=== PATIENT | female | born 1990 | race Two or more races ===

== ENCOUNTER 2017-09-08 22:33 | Emergency (ER) | payer OTHER ==
[2016-02-16 22:15] VITALS: Wt 96.2 kg
[~2017-09-08 22:33] MED LIST: AMOX-362 PO; AUG875 PO; CEPH500C24 PO; FERR159T PO; FERR27TA3 PO; FERR324T16 PO; HYDR-4240 PO; HYDR-4309 PO; HYDR2TAB74 PO; IBU800 PO; IBUP-56 PO; IBUP800T37 PO; METH-278 PO; NIT100 PO; NITR-105 PO; OXYC-373 PO; PER PO; PHENA200 PO; PNV1TABL70 PO; PRED-1 PO; PRED20TA6 PO; PREN-127 PO; SULF-198 PO
[2017-09-08 22:40] VITALS: BP 123/70
--- NOTE | 2017-09-08 22:40 | ER Report ---
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 Patient has no obvious knowledge as to the source patient. She thinks it was a diabetic syringe. Patient sustained a tiny puncture wound to her small finger. Allergies: Coded Allergies: No Known Drug Allergies (Verified , 05/27/15) Home Meds Reported Medications Ferrous Sulfate, Dried (IRON) 159 Mg Tablet.er, PO 02/16/16 Vits W-Ca,Fe,Fa(<1MG) ( VITAMINS) 1 Each Tablet, 1 EACH PO DAILY, TAB 02/16/16 Reviewed Nurses Notes: Yes Old Medical Records Reviewed: Yes Hx Smoking: Yes Smoking Status: Former Smoker Exposure to Second Hand Smoke?: Yes Hx Substance Use Disorder: No Hx Alcohol Use: No Constitutional Vital Sign - Last 24 Hours 09/08/17 22:40 Temp 99.0 Pulse 66 Resp 16 B/P (MAP) 123/70 Pulse Ox 94 O2 Delivery Room Air Physical Exam General appearance: Alert no distress. Respiratory: Chest is non tender, lungs are clear to auscultation. Cardiac: Regular rate and rhythm Extremities. There is a tiny puncture wound noted on the left hand. DIFFERENTIAL DIAGNOSIS: After history and physical exam differential diagnosis was considered for needlestick exposure, parenteral body fluid exposure Medical Decision Making Data Points Laboratory Hematology Test 09/08/17 23:03 HIV (1&2) Antibody Negative (NEGATIVE) Chemistry Test 09/08/17 23:03 HIV (1&2) Antibody Negative (NEGATIVE) ED Course/Re-evaluation ED Course Patient was admitted to an examination room. H&P was done. The differential diagnosis was considered. On clinical examination. Patient is a tiny puncture wound. Patient has are cleaned and dressed the wound. Her tetanus status is verified is up-to-date. Patient's baseline laboratory studies will be ordered. Patient is advised against post exposure prophylaxis. She is agreeable with this treatment plan. She is advised that she needs to follow-up for repeat blood draws at 6 weeks and 6 months. Decision to Disposition Date: September 08, 2017 Decision to Disposition Time: 22:46 Depart Departure Latest Vital Signs Vital Signs Date Time Temp Pulse Resp B/P (MAP) Pulse Ox O2 Delivery O2 Flow Rate FiO2 09/08/17 22:40 99.0 66 16 123/70 94 Room Air Impression: Primary Impression: Needle stick injury of finger of left hand Additional Impression: Employee exposure to body fluids Condition: Improved Disposition: HOME OR SELF-CARE Patient Instructions: Body Substance Exposure (ED) Additional Instructions: Follow-up with your workers comp provider in 6 weeks and 6 months for repeat blood work Problem Qualifiers Primary Impression: Needle stick injury of finger of left hand Encounter type: initial encounter Qualified Codes: S61.239A - Puncture wound without foreign body of unspecified finger without damage to nail, initial encounter; W27.3XXA - Contact with needle (sewing), initial encounter TAJ VALENZUELA DO September 08, 2017 22:40
== END 2017-09-08 23:20 | disposition home or self-care (01) ==
LOC: ER 22:53
DX: S61.239A Puncture wound without foreign body of unspecified finger without damage to nail, initial encounter (principal)
CPT/HCPCS: 86703; 86803; 87340; 99282

== ENCOUNTER → 2017-11-23 | Outpatient (REF) ==
[2016-02-16 22:15] VITALS: BMI 42.1
--- NOTE | 2017-11-23 11:02 | RADIOLOGY IMAGING REPORT ---
FACILITY: [facility] PATIENT NAME: Aruna Garcia : 1990 MR: [id number] V: [id number] EXAM DATE: ORDERING PHYSICIAN: HEATHER RODRIGUEZ TECHNOLOGIST: Location: [facility] [place] Patient: Aruna Garcia : 1990 Visit/Account:[id number] Date of Sevice: 11/23/2017 GALLBLADDER HISTORY: Pain after eating COMPARISON: None. FINDINGS: Gallbladder: Unremarkable; no stones or sludge. Liver: Negative. Common duct: Normal, 2.9 mm diameter. Pancreas: Partially obscured by bowel, visualized aspects unremarkable. Right kidney: Appears unremarkable measuring 11 cm in length Upper abdominal aorta and IVC: Patent. Ascites: None visualized. IMPRESSION: Unremarkable right upper quadrant ultrasound Report Dictated By: Jayne Monroe MD at 11/23/2017 10:56 AM Report E-Signed By: Jayne Monroe MD at 11/23/2017 10:58 AM WSN:[id number]
== END ==
LOC: US 00:39
PROVIDERS: ATTEND Family Medicine
DX: R10.9 Unspecified abdominal pain (principal)
CPT/HCPCS: 76705